=== PATIENT | male | born 1930 | race Caucasian/White ===

== ENCOUNTER 2017-06-28 05:14 | Emergency (ER) | payer MEDICARE, BC ==
[2017-06-28] MEDS ORDERED: Phenylephrine 0.5% Nasal Spray 15 ML Bot NASBOTH ONE (05:19)
[2017-06-28 05:20] VITALS: BP 172/66
--- NOTE | 2017-06-28 05:38 | EDM.PDOC ---
ED HPI GENERAL MEDICAL PROBLEM - General Chief Complaint: ENT Problem Stated Complaint: NOSE BLEED Time Seen by Provider: 06/28/17 05:26 Source of Information: Reports: Patient, Family History Limitations: Reports: No Limitations - History of Present Illness INITIAL COMMENTS - FREE TEXT/NARRATIVE: C/o waking with nosebleed on right side. Hx of similar in past. On Coumadin. InR checked last week at 1.8 - Related Data Allergies Allergy/AdvReac Type Severity Reaction Status Date / Time No Known Allergies Allergy Verified 06/28/17 05:17 Home Meds: Home Meds Aspirin [[place] Aspirin] 81 mg PO DAILY 04/24/14 [History] Doxazosin [Doxazosin Mesylate] 8 mg PO BEDTIME 04/24/14 [History] Levothyroxine [Synthroid] 75 mcg PO ACBRK 04/24/14 [History] Lisinopril [Lisinopril] 10 mg PO DAILY 04/24/14 [History] Metoprolol Succinate [Toprol XL] 25 mg PO DAILY 04/24/14 [History] Nitroglycerin [Nitrostat] 0.4 mg SL ASDIRECTED PRN 04/24/14 [History] Triamcinolone Acetonide [Triamcinolone Acetonide 0.1% Crm] 15 gm .XX ASDIRECTED 04/24/14 [History] Warfarin [Coumadin] 7.5 mg PO DAILY 04/24/14 [History] Furosemide [Furosemide] 40 mg PO DAILY 06/28/17 [History] Past Medical History HEENT History: Reports: Epistaxis, Impaired Vision Cardiovascular History: Reports: High Cholesterol, Hypertension Musculoskeletal History: Reports: Arthritis Endocrine/Metabolic History: Reports: Hypothyroidism Oncologic (Cancer) History: Reports: Prostate - Past Surgical History Cardiovascular Surgical History: Reports: Valve Replacement Social & Family History - Family History Family Medical History: Noncontributory - Tobacco Use Smoking Status *Q: Never Smoker Second Hand Smoke Exposure: No - Alcohol Use Days Per Week of Alcohol Use: 0 - Recreational Drug Use Recreational Drug Use: No ED ROS ENT - Review of Systems Review Of Systems: ROS reveals no pertinent complaints other than HPI. ED EXAM, ENT - Physical Exam Exam: See Below Exam Limited By: No Limitations General Appearance: Alert, Mild Distress Eye Exam: Bilateral Eye: EOMI Nose: Active Bleeding (right slight, small clot expressed. ). No: Dried Blood Head: Atraumatic, Normocephalic Neck: Normal Inspection Respiratory/Chest: No Respiratory Distress Extremities: Normal Inspection, Normal Range of Motion Neurological: Alert, Oriented, Normal Cognition Skin: Warm, Dry, Intact, Normal Color ED ENT PROCEDURES - Epistaxis Procedure Indication: Epistaxis Recent anticoagulants/antiplatlets: Yes Uncontrolled HTN: No Recent septal/nasal surgery: No Site of bleeding: Left Nare Clearing of clots: Patient Blew Nose Topical Meds: Phenylephrine Ice pack to area: No Anterior Packing: Inflatable Nasal Tampon Course - Vital Signs Last Recorded V/S: Last Vital Signs Temp 96.4 F 06/28/17 05:18 Pulse 88 06/28/17 05:18 Resp 20 06/28/17 05:18 BP 172/66 H 06/28/17 05:18 Pulse Ox 100 06/28/17 05:18 - Orders/Labs/Meds Labs: Laboratory Tests 06/28/17 06/28/17 06/28/17 Range/Units 05:28 05:28 05:28 WBC 5.0 (5.0-10.0) 10^3/uL RBC 3.63 L (4.6-6.2) 10^6/uL Hgb 11.0 L (14.0-18.0) g/dL Hct 33.8 L (40.0-54.0) % MCV 93.1 (80-100) fL MCH 30.3 (27.0-34.0) pg MCHC 32.5 L (33.0-35.0) g/dL Plt Count 141 L (150-450) 10^3/uL Neut % (Auto) 68.3 (42.2-75.2) % Lymph % (Auto) 19.0 L (20.5-50.1) % [place] % (Auto) 10.1 H (2-8) % Eos % (Auto) 2.0 (1.0-3.0) % Baso % (Auto) 0.6 (0.0-1.0) % PT 23.6 H (9.0-12.0) SEC INR 2.3 H (0.9-1.2) Sodium 138 (135-145) mmol/L Potassium 4.4 (3.6-5.0) mmol/L Chloride 102 (101-111) mmol/L Carbon Dioxide 25.0 (21.0-31.0) mmol/L Anion Gap 15.4 BUN 31 H (7-18) mg/dL Creatinine 1.3 (0.6-1.3) mg/dL Est Cr Clr Drug Dosing 39.55 mL/min Estimated GFR (MDRD) 53 BUN/Creatinine Ratio 23.84 Glucose 128 H (74-105) mg/dL Calcium 9.0 (8.4-10.2) mg/dl Total Bilirubin 0.7 (0.2-1.0) mg/dL AST 23 (10-42) IU/L ALT 17 (10-60) IU/L Alkaline Phosphatase 59 (42-121) IU/L Total Protein 7.3 (6.7-8.2) g/dl Albumin 4.3 (3.2-5.5) g/dl Globulin 3.0 Albumin/Globulin Ratio 1.43 Meds: Medications Discontinued Medications Generic Name Dose Route Start Last Admin Trade Name Freq PRN Reason Stop Dose Admin Phenylephrine HCl 1 ml 06/28/17 05:19 06/28/17 05:23 Juan Manuel-Synephrine 0.5% Regular Nasal [place] NASBOTH 06/28/17 05:20 1 ml ONETIME ONE Administration Departure - Departure Time of Disposition: 06:30 Disposition: Home, Self-Care 01 Condition: Good Clinical Impression: Epistaxis, Chronic anticoagulation - Discharge Information Forms: ED Department Discharge Additional Instructions: follow up with Dr. Rivera today as scheduled rest If recurrent bleeding, apply direct pressure to nose bridge for at least 5 minutes. if continued bleeding despite pressure follow up. Humidifier in bedroom at night
== END 2017-06-28 06:33 | disposition home or self-care (01) ==
LOC: DL.ED 05:14
DX: R04.0 Epistaxis (principal); M19.90 Unspecified osteoarthritis, unspecified site; I10 Essential (primary) hypertension; E78.00 Pure hypercholesterolemia, unspecified; E03.9 Hypothyroidism, unspecified; Z95.2 Presence of prosthetic heart valve; Z85.46 Personal history of malignant neoplasm of prostate; Z79.01 Long term (current) use of anticoagulants; Z79.82 Long term (current) use of aspirin; Z79.899 Other long term (current) drug therapy
CPT/HCPCS: 30903; 36415; 80053; 85025; 85610; 99283; A9270

== ENCOUNTER 2017-08-16 08:50 | Emergency (ER) | payer MEDICARE, BC ==
[2017-08-16 09:01] VITALS: BP 138/53
[2017-08-16] MEDS ORDERED: Phenylephrine 0.5% Nasal Spray 15 ML Bot NASBOTH ONE (09:49)
--- NOTE | 2017-08-16 10:08 | EDM.PDOC ---
ED HPI GENERAL MEDICAL PROBLEM - General Chief Complaint: ENT Problem Stated Complaint: [id number] NOSE BLEED Time Seen by Provider: 08/16/17 09:05 Source of Information: Reports: Patient History Limitations: Reports: No Limitations - History of Present Illness INITIAL COMMENTS - FREE TEXT/NARRATIVE: This 86 yo male patient reports to the ED with a nose bleed. The patient reports his right nare started bleeding at about 0200 this morning and has continued despite attempts at controlling the bleeding at home. The patient reports he has had previous symptoms in the past and has attempted to get an appointment with an ENT for further treatment. The patient is on blood thinner which seems to complicate his nosebleeds. Onset: Today Onset Date: 08/16/17 Onset Time: 02:00 Duration: Constant Location: Reports: Face (right nare) Quality: Reports: Dull Severity: Moderate Improves with: Reports: None Worsens with: Reports: None Associated Symptoms: Reports: Other (epistaxis) - Related Data Allergies Allergy/AdvReac Type Severity Reaction Status Date / Time No Known Allergies Allergy Verified 06/28/17 05:17 Home Meds: Home Meds Aspirin [[place] Aspirin] 81 mg PO DAILY 04/24/14 [History] Doxazosin [Doxazosin Mesylate] 8 mg PO BEDTIME 04/24/14 [History] Levothyroxine [Synthroid] 75 mcg PO ACBRK 04/24/14 [History] Lisinopril [Lisinopril] 10 mg PO DAILY 04/24/14 [History] Metoprolol Succinate [Toprol XL] 25 mg PO DAILY 04/24/14 [History] Nitroglycerin [Nitrostat] 0.4 mg SL ASDIRECTED PRN 04/24/14 [History] Triamcinolone Acetonide [Triamcinolone Acetonide 0.1% Crm] 15 gm .XX ASDIRECTED 04/24/14 [History] Warfarin [Coumadin] 7.5 mg PO DAILY 04/24/14 [History] Furosemide [Furosemide] 40 mg PO DAILY 06/28/17 [History] Past Medical History HEENT History: Reports: Epistaxis, Impaired Vision Cardiovascular History: Reports: Afib, High Cholesterol, Hypertension, Stents Genitourinary History: Reports: Prostate Disorder Musculoskeletal History: Reports: Arthritis, Osteoporosis Endocrine/Metabolic History: Reports: Hypothyroidism Oncologic (Cancer) History: Reports: Prostate - Past Surgical History Cardiovascular Surgical History: Reports: AAA Repair, Aneurysm, Valve Replacement GI Surgical History: Reports: Appendectomy Male Surgical History: Reports: Prostate Biopsy Social & Family History - Family History Family Medical History: Noncontributory - Tobacco Use Smoking Status *Q: Former Smoker Used Tobacco, but Quit: Yes Month Tobacco Last Used: ? Second Hand Smoke Exposure: No - Caffeine Use Caffeine Use: Reports: Coffee - Alcohol Use Days Per Week of Alcohol Use: 0 - Recreational Drug Use Recreational Drug Use: No ED ROS ENT - Review of Systems Review Of Systems: ROS reveals no pertinent complaints other than HPI. ED EXAM, ENT - Physical Exam Exam: See Below Exam Limited By: No Limitations General Appearance: Alert, WD/WN, Moderate Distress Eye Exam: Bilateral Eye: EOMI, Normal Inspection, PERRL Ears: Normal External Exam, Normal Canal, Hearing Grossly Normal, Normal TMs Nose: Active Bleeding (right nare) Mouth/Throat: Normal Inspection, Normal Gums, Normal Lips, Normal Oropharynx, Normal Teeth Head: Atraumatic, Normocephalic Neck: Normal Inspection, Supple, Non-Tender, Full Range of Motion Respiratory/Chest: No Respiratory Distress, Lungs Clear, Normal Breath Sounds, No Accessory Muscle Use, Chest Non-Tender Cardiovascular: Normal Peripheral Pulses, Irregularly Irregular GI/Abdominal: Normal Bowel Sounds, Soft, Non-Tender, No Organomegaly, No Distention, No Abnormal Bruit, No Mass (Male) Exam: Deferred Rectal (Males) Exam: Deferred Back: Normal Inspection, Full Range of Motion Extremities: Normal Inspection, Normal Range of Motion, Non-Tender, No Pedal Edema, Normal Capillary Refill Neurological: Alert, Oriented, CN II-XII Intact, Normal Cognition, Normal Gait, Normal Reflexes, No Motor/Sensory Deficits Psychiatric: Normal Affect, Normal Mood Skin: Warm, Dry, Intact, Normal Color, No Rash Lymphatic: No Adenopathy ED ENT PROCEDURES - Epistaxis Procedure Indication: Epistaxis Recent anticoagulants/antiplatlets: Yes Uncontrolled HTN: No Recent septal/nasal surgery: No Site of bleeding: Right Nare Clearing of clots: Patient Blew Nose Topical Meds: Phenylephrine Ice pack to area: No Anterior Packing: Nasal Tampon Posterior packing: Long Nasal Tampon Complications: No Course - Vital Signs Last Recorded V/S: Last Vital Signs Temp 35.9 C 08/16/17 08:57 Pulse 60 08/16/17 08:57 Resp 16 08/16/17 08:57 BP 138/53 L 08/16/17 08:57 Pulse Ox 100 08/16/17 08:57 - Orders/Labs/Meds Labs: Laboratory Tests 08/16/17 08/16/17 08/16/17 Range/Units 09:08 09:08 09:08 WBC 5.2 (5.0-10.0) 10^3/uL RBC 3.35 L (4.6-6.2) 10^6/uL Hgb 10.1 L (14.0-18.0) g/dL Hct 31.6 L (40.0-54.0) % MCV 94.3 (80-100) fL MCH 30.1 (27.0-34.0) pg MCHC 32.0 L (33.0-35.0) g/dL Plt Count 156 (150-450) 10^3/uL Neut % (Auto) 75.4 H (42.2-75.2) % Lymph % (Auto) 14.5 L (20.5-50.1) % [place] % (Auto) 8.1 H (2-8) % Eos % (Auto) 1.4 (1.0-3.0) % Baso % (Auto) 0.6 (0.0-1.0) % PT 29.6 H (9.0-12.0) SEC INR 2.9 H (0.9-1.2) Sodium 135 (135-145) mmol/L Potassium 4.3 (3.6-5.0) mmol/L Chloride 100 L (101-111) mmol/L Carbon Dioxide 25.0 (21.0-31.0) mmol/L Anion Gap 14.3 BUN 27 H (7-18) mg/dL Creatinine 1.2 (0.6-1.3) mg/dL Est Cr Clr Drug Dosing 42.84 mL/min Estimated GFR (MDRD) 58 BUN/Creatinine Ratio 22.50 Glucose 144 H (74-105) mg/dL Calcium 8.5 (8.4-10.2) mg/dl Total Bilirubin 0.9 (0.2-1.0) mg/dL AST 21 (10-42) IU/L ALT 13 (10-60) IU/L Alkaline Phosphatase 66 (42-121) IU/L Total Protein 6.9 (6.7-8.2) g/dl Albumin 4.0 (3.2-5.5) g/dl Globulin 2.9 Albumin/Globulin Ratio 1.38 Meds: Medications Discontinued Medications Generic Name Dose Route Start Last Admin Trade Name Freq PRN Reason Stop Dose Admin Phenylephrine HCl 1 ml 08/16/17 09:49 08/16/17 09:53 Juan Manuel-Synephrine 0.5% Regular Nasal [place] NASBOTH 08/16/17 09:50 1 ml ONETIME ONE Administration Departure - Departure Time of Disposition: 10:32 Disposition: Home, Self-Care 01 Condition: Fair Clinical Impression: Epistaxis, recurrent - Discharge Information Instructions: Nosebleed, [id number] Forms: ED Department Discharge Care Plan Goals: The patient and his were advised of the examination and lab results during the visit. The patient's right nare was packed during the visit to control bleeding. The patient was encouraged to follow-up with his primary care facility or with an ENT in the next 3-4 days for packing removal. If the patient has any additional symptoms or concerns, the patient should visit his primary care facility or return to the emergency department.
== END 2017-08-16 10:37 | disposition home or self-care (01) ==
LOC: DL.ED 08:50
DX: R04.0 Epistaxis (principal); Z79.82 Long term (current) use of aspirin; Z79.01 Long term (current) use of anticoagulants; Z79.899 Other long term (current) drug therapy; Z87.891 Personal history of nicotine dependence
CPT/HCPCS: 30903; 36415; 80053; 85025; 85610; 99283; A9270; 30901; 99282

== ENCOUNTER 2021-01-16 10:28 | Emergency (ER) | payer MEDICARE, BC ==
[2021-01-16 10:43] VITALS: BP 159/64; PULSE 53
--- NOTE | 2021-01-16 10:54 | EDM.PDOC ---
<MarcioHalley - Last Filed: 01/16/21 12:20> ED HPI GENERAL MEDICAL PROBLEM - General Chief Complaint: General Stated Complaint: SENT FROM CLINIC HEART PROBLEM Time Seen by Provider: 01/16/21 11:10 Source of Information: Reports: Patient, Family History Limitations: Reports: No Limitations - History of Present Illness INITIAL COMMENTS - FREE TEXT/NARRATIVE: Patient is an 89 y.o. male, history of CHF and atrial fibrillation, who presents to the ED with c/o worsening shortness of breath and bilateral lower extremity edema. The patient reports he was more short of breath approximately 2 weeks ago when he was walking upstairs from his basement. He reports his symptoms have progressed over the course of 2 weeks to the point he won't attempt to go down his stairs. He also has developed a mild cough with no production. Home health comes to the patient's home every two weeks and they noticed his legs were more swollen on 01/12. He presented to [facility] clinic yesterday (01/15/2021) and they documented a 7 pound weight gain since 12/18/2020. The patient states his primary care provider decreased one of his diuretics; however, he is unable to remember the name of it. He recently began splitting his metalazone pill in half and has been taking 1/2 on Tuesday and the other half on with no relief. Patient denies headache, dizziness, changes in vision, chest pain, paroxysmal nocturnal orthopnea, abdominal pain, constipation, or diarrhea. Onset: Gradual Duration: Getting Worse Location: Reports: Chest Improves with: Reports: None Worsens with: Reports: None Associated Symptoms: Reports: Cough, Shortness of Breath - Related Data Allergies Allergy/AdvReac Type Severity Reaction Status Date / Time insect venom Allergy Hives Verified 01/16/21 10:53 Home Meds: Home Meds Aspirin [[place] Aspirin] 81 mg PO DAILY 04/24/14 [History] Levothyroxine [Synthroid] 75 mcg PO ACBRK 04/24/14 [History] Metoprolol Succinate [Toprol XL] 12.5 mg PO DAILY 04/24/14 [History] Nitroglycerin [Nitrostat] 0.4 mg SL ASDIRECTED PRN 04/24/14 [History] Warfarin [Coumadin] 7.5 mg PO ASDIRECTED 04/24/14 [History] Furosemide 40 mg PO DAILY 06/28/17 [History] Allopurinol [Zyloprim] 100 mg PO DAILY 01/16/21 [History] Calcium Carb/Vit D3/Minerals [Hm Calcium 800-D3-Ncopcmgk Tab] 2 oz PO BID 01/16/21 [History] Cyanocobalamin (Vitamin B-12) [Cyanocobalamin Injection] 1,000 mcg IM ASDIRECTED 01/16/21 [History] Denosumab [Prolia] 60 mg SUBCUT ASDIRECTED 01/16/21 [History] Glucosamine/Msm/Chondroitin A [Glucosamine Chondroit MSM Tab] 1 tab PO BID 01/16/21 [History] Rosuvastatin [Crestor] 5 mg PO ASDIRECTED 01/16/21 [History] Tamsulosin [Flomax] 0.4 mg PO DAILY 01/16/21 [History] Warfarin [Coumadin] 5 mg PO ASDIRECTED 01/16/21 [History] amLODIPine Besylate [Amlodipine Besylate] 10 mg PO DAILY 01/16/21 [History] metOLazone [Metolazone] 2.5 mg PO ASDIRECTED 01/16/21 [History] ED ROS GENERAL - Review of Systems Review Of Systems: Comprehensive ROS is negative, except as noted in HPI. ED EXAM, GENERAL - Physical Exam Exam: See Below Exam Limited By: No Limitations General Appearance: Alert, WD/WN, No Apparent Distress Eye Exam: Bilateral Eye: EOMI, Normal Inspection Throat/Mouth: Normal Inspection, Normal Lips, Normal Teeth, Normal Gums, Normal Oropharynx, Normal Voice, No Airway Compromise Head: Atraumatic, Normocephalic Neck: Normal Inspection, Supple, Non-Tender, Full Range of Motion Respiratory/Chest: No Respiratory Distress, Lungs Clear, Normal Breath Sounds, No Accessory Muscle Use, Chest Non-Tender Cardiovascular: Normal Peripheral Pulses, No Gallop, No JVD, No Murmur, No Rub, Irregularly Irregular (Patient chronically in Atrial Fibrilation) GI/Abdominal: Normal Bowel Sounds, Soft, Non-Tender, No Organomegaly, No Distention, No Abnormal Bruit, No Mass (Male) Exam: Deferred Rectal (Males) Exam: Deferred Back Exam: Normal Inspection, Full Range of Motion, NT Extremities: Normal Inspection, Normal Range of Motion, Non-Tender, Normal Capillary Refill, Pedal Edema (Patient has 1+ edema in bilateral lower legs ) Neurological: Alert, Oriented, CN II-XII Intact, Normal Cognition, Normal Gait, Normal Reflexes, No Motor/Sensory Deficits Psychiatric: Normal Affect, Normal Mood Skin Exam: Warm, Dry, Intact, Normal Color, No Rash Lymphatic: No Adenopathy Course - Re-Assessments/Exams Free Text/Narrative Re-Assessment/Exam: Discussed the patient's physical exam, lab, EKG and X-ray results with the patient and his son. The patient's EKG was remarkable for Atrial fibrillation, which is normal for the patient. RBC, Hgb, and Hct, were at patient's baseline. BUN and Creatinine were elevated at 50 and 2.00 respectively. Patient's BUN was 45 and Creatinine was 1.7 in the clinic on 01/08/2021. Troponin was negative today. BNP was 386. We discussed treatment options with the patient and son. We offered to speak with the hospitalist to discuss [facility] We also offered to give the patient a dose of IV lasix in the ED, send him home, and have him follow up with PCP early next week. The patient and his son both agreed it would be best for the patient and his home life to receive a dose in the ED and follow up next week. 01/16/21 12:04 Departure - Departure Time of Disposition: 12:20 Disposition: Home, Self-Care 01 Condition: Fair Clinical Impression: CHF, Congestive heart failure, Afib, Atrial fibrillation - Discharge Information *PRESCRIPTION DRUG MONITORING PROGRAM REVIEWED*: Not Applicable *COPY OF PRESCRIPTION DRUG MONITORING REPORT IN PATIENT SILVIA: Not Applicable Instructions: Heart Failure Action Plan, Heart Failure Exacerbation Forms: ED Department Discharge Care Plan Goals: -Discussed the history, physical exam, lab, EKG, and Chest X-ray results with the patient and his son. -The patient received 40mg IV Lasix in the ED. -Patient should continue to monitor weight at home. Continue taking daily medications as prescribed. -Follow up in the ED if symptoms worsen or new symptoms develop. -Follow up in the clinic early next week with primary care provider to monitor symptoms. Patient and his son agreed to the above plan of care. All questions and concerns were addressed. <Colin Henning - Last Filed: 01/16/21 12:29> Past Medical History HEENT History: Reports: Epistaxis, Impaired Vision Cardiovascular History: Reports: Afib, High Cholesterol, Hypertension, Stents Genitourinary History: Reports: Prostate Disorder Musculoskeletal History: Reports: Arthritis, Osteoporosis Endocrine/Metabolic History: Reports: Hypothyroidism Oncologic (Cancer) History: Reports: Prostate - Past Surgical History Cardiovascular Surgical History: Reports: AAA Repair, Aneurysm, Valve Replacement GI Surgical History: Reports: Appendectomy Male Surgical History: Reports: Prostate Biopsy Social & Family History - Family History Family Medical History: No Pertinent Family History - Caffeine Use Caffeine Use: Reports: Coffee #1 Interpretation EKG Date: 01/16/21 Time: 10:41 Rhythm: A-Fib [place]: Normal P-Wave: Absent QRS: Normal ST-T: Normal QT: Normal Comparison: No Change Course - Vital Signs Last Recorded V/S: Last Vital Signs Temp 36.1 C 01/16/21 10:34 Pulse 53 L 01/16/21 10:34 Resp 16 01/16/21 10:34 BP 159/64 H 01/16/21 10:34 Pulse Ox 100 01/16/21 10:34 - Orders/Labs/Meds Orders: Active Orders 24 hr Category Date Time Status EKG Documentation Completion [RC] STAT Care 01/16/21 10:37 Active Labs: Laboratory Tests 01/16/21 01/16/21 01/16/21 Range/Units 10:52 10:52 11:10 WBC 7.0 (5.0-10.0) 10^3/uL RBC 3.26 L (4.6-6.2) 10^6/uL Hgb 10.5 L (14.0-18.0) g/dL Hct 31.0 L (40.0-54.0) % MCV 95.1 (80-100) fL MCH 32.2 (27.0-34.0) pg MCHC 33.9 (33.0-35.0) g/dL Plt Count 175 (150-450) 10^3/uL Neut % (Auto) 73.0 (42.2-75.2) % Lymph % (Auto) 12.1 L (20.5-50.1) % [place] % (Auto) 12.4 H (2-8) % Eos % (Auto) 1.6 (1.0-3.0) % Baso % (Auto) 0.9 (0.0-1.0) % Sodium 135 L (136-145) mmol/L Potassium 3.1 L (3.5-5.1) mmol/L Chloride 95 L (98-107) mmol/L Carbon Dioxide 31 (21-32) mmol/L Anion Gap 12.1 (7-13) mEq/L BUN 54 H (7-18) mg/dL Creatinine 2.00 H (0.70-1.30) mg/dL Est Cr Clr Drug Dosing 23.87 mL/min Estimated GFR (MDRD) 32 BUN/Creatinine Ratio 27.0 (No establ ref range) Glucose 152 H (74-99) mg/dL Calcium 8.5 (8.5-10.1) mg/dL Total Bilirubin 0.7 (0.2-1.0) mg/dL AST 19 (15-37) U/L ALT 22 (16-63) U/L Alkaline Phosphatase 84 (46-116) U/L Troponin I 0.022 (0.000-0.056) ng/mL B-Natriuretic Peptide 386 H (0-100) pg/ml Total Protein 7.4 (6.4-8.2) g/dL Albumin 3.7 (3.4-5.0) g/dL Globulin 3.7 Albumin/Globulin Ratio 1.0 Urine Color Yellow (YELLOW) Urine Appearance Clear (CLEAR) Urine pH 7.0 (5.0-9.0) Ur Specific [place] 1.020 (1.005-1.030) Urine Protein Negative (NEGATIVE) Urine Glucose (UA) Negative (NEGATIVE) Urine Ketones Negative (NEGATIVE) Urine Occult Blood Trace-intact H (NEGATIVE) Urine Nitrite Negative (NEGATIVE) Urine Bilirubin Negative (NEGATIVE) Urine Urobilinogen 0.2 (0.2-1.0) mg/dL Ur Leukocyte Esterase Negative (NEGATIVE) Urine RBC 5-10 H /HPF Urine WBC 0-5 (0-5/HPF) /HPF Ur Epithelial Cells Rare (NOT SEEN) /HPF Urine Bacteria Rare (0-FEW/HPF) /HPF Urine Mucus Few H (NOT SEEN) /LPF Meds: Medications Discontinued Medications Generic Name Dose Route Start Last Admin Trade Name Freq PRN Reason Stop Dose Admin Furosemide 40 mg 01/16/21 11:59 01/16/21 12:05 Furosemide 40 Mg/4 Ml Vial IVPUSH 01/16/21 12:00 40 mg NOW ONE Administration - Re-Assessments/Exams Free Text/Narrative Re-Assessment/Exam: 01/16/21 12:29 I have examined the patient. I have discussed findings and treatment plan with the PA student. I agree with the assessment and plan in the following students note. Sepsis Event Note (ED) - Evaluation Sepsis Screening Result: No Definite Risk - Focused Exam Vital Signs: Vital Signs Temp Pulse Resp BP Pulse Ox 01/16/21 10:34 36.1 C 53 L 16 159/64 H 100 - My Orders Last 24 Hours: My Active Orders 01/16/21 10:37 EKG Documentation Completion [RC] STAT - Assessment/Plan Last 24 Hours: My Active Orders 01/16/21 10:37 EKG Documentation Completion [RC] STAT
[2021-01-16 11:18] LABS: ANION GAP 12.1 mEq/L (7-13)
--- NOTE | 2021-01-16 11:41 | CR ---
PROCEDURE INFORMATION: Exam: XR Chest Exam date and time: 01/16/2021 11:11 AM Age: 89 years old Clinical indication: Shortness of breath and other: History of chf; Prior surgery; Additional info: Short of breath, HX of chf TECHNIQUE: Imaging protocol: XR of the chest Views: 1 view. COMPARISON: No relevant prior studies available. FINDINGS: Lungs: There is minor streaky bibasilar atelectasis. The lungs are otherwise clear. Pleural spaces: Unremarkable. No pleural effusion. No pneumothorax. Heart/Mediastinum: The cardiac silhouette appears large. Bones/joints: Unremarkable. Other findings: Median sternotomy wires are present. IMPRESSION: Cardiomegaly. No acute pulmonary disease.
[2021-01-16] MEDS ORDERED: Furosemide 40 MG/4 ML VIAL IVPUSH ONE (11:59)
== END 2021-01-16 12:50 | disposition home or self-care (01) ==
LOC: DL.ED 10:28
DX: I48.91 Unspecified atrial fibrillation (principal); I11.0 Hypertensive heart disease with heart failure; I50.9 Heart failure, unspecified; E78.00 Pure hypercholesterolemia, unspecified; M19.90 Unspecified osteoarthritis, unspecified site; E03.9 Hypothyroidism, unspecified; Z91.038 Other insect allergy status; Z79.82 Long term (current) use of aspirin; Z79.899 Other long term (current) drug therapy
CPT/HCPCS: 36415; 71045; 80053; 81001; 83880; 84484; 85025; 93005; 96374; 99285; J1940; 93010

== ENCOUNTER 2021-01-20 11:20 | Observation (INO) | payer MEDICARE, BC ==
[2021-01-20] MEDS ORDERED: Sodium Chloride 0.9% 10 ML Syringe FLUSH PRN (12:02)
[2021-01-20] MEDS ORDERED: Acetaminophen 325 MG Tab PO PRN (12:02)
[2021-01-20] MEDS ORDERED: Potassium Chloride 10 MEQ Tab.ER PO ONE (13:13)
[2021-01-20] MEDS ORDERED: Potassium Chloride 20 MEQ in Premix Bag 1 BAG IV ONE (13:13)
--- NOTE | 2021-01-20 14:42 | CR ---
EXAMINATION: Chest 2V SEX: Male AGE: 89 years CLINICAL HISTORY: 82-year-old male with clinical heart failure (CHF). Comparison CXR's 16 January 2021 and 31 July 2012 INTERPRETATION: Sternotomy wires. 1. Abnormally enlarged cardiac silhouette decidedly increased since July 2012 but comparable to 16 January film. 2. Chronic mild pulmonary vascular congestion and blunting of the costophrenic sulci. 3. No new evidence of alveolar edema, interstitial Patricia B lines, or dependent pleural fluid accumulation. 4. No new lung mass or hilar lymphadenopathy. 5. No focal lobar infiltrate or atelectasis. No peripheral "groundglass" interstitial lung densities. 6. No pneumothorax or pneumomediastinum. CONCLUSION: Chronic heart disease. Stable. No new evidence of congestive heart failure.
--- NOTE | 2021-01-20 14:48 | PCM.HP ---
H&P History of Present Illness - General Date of Service: 01/20/21 Admit Problem/Dx: Admission Diagnosis/Problem Admission Diagnosis/Problem Hypokalemia Source of Information: Patient, Provider History Limitations: Reports: No Limitations - History of Present Illness Onset of Symptoms: Reports: Gradual Duration of Symptoms: Reports: Day(s): (few\) Severity: Moderate Other HPI/Comments: pt is 89 y/o m with h/o A fib, CAD, AAA repair, AVR 20 years ago, CHF. Pt reported SOB for 1-2 weeks. He was treated on ER few days ago for CHF exacerbation. with IV Lasix. He symptoms improved . Today he was seen by his PCP and was found with K 2.9 and he was admitted for replacment. Pt reportes that he has gain 10 Lbs over the last 2 weeks ( his dry wt is ~ 185 Lbs). He reports that he has no orthopnea but hr get SOB on mild exertion. no cough or CP. 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 He liver with his and son. - Related Data Allergies/Adverse Reactions: Allergies Allergy/AdvReac Type Severity Reaction Status Date / Time insect venom Allergy Hives Verified 01/16/21 10:53 Home Medications: Home Meds Levothyroxine [Synthroid] 75 mcg PO ACBRK 04/24/14 [History] Metoprolol Succinate [Toprol XL] 12.5 mg PO BEDTIME 04/24/14 [History] Nitroglycerin [Nitrostat] 0.4 mg SL ASDIRECTED PRN 04/24/14 [History] Warfarin [Coumadin] 7.5 mg PO .LUKE@2100 04/24/14 [History] Furosemide 40 mg PO DAILY 06/28/17 [History] Allopurinol [Zyloprim] 100 mg PO DAILY 01/16/21 [History] Calcium Carb/Vit D3/Minerals [Hm Calcium 787-T6-Tdohcdpc Tab] 2 oz PO BIDMEALS 01/16/21 [History] Cyanocobalamin (Vitamin B-12) [Cyanocobalamin Injection] 1,000 mcg IM ASDIRECTED 01/16/21 [History] Denosumab [Prolia] 60 mg SUBCUT ASDIRECTED 01/16/21 [History] Glucosamine/Msm/Chondroitin A [Glucosamine Chondroit MSM Tab] 1 tab PO BIDMEALS 01/16/21 [History] Rosuvastatin [Crestor] 5 mg PO .MONWEDFRID@2100 01/16/21 [History] Tamsulosin [Flomax] 0.4 mg PO DAILY 01/16/21 [History] Warfarin [Coumadin] 5 mg PO .MONWEDFRI 01/16/21 [History] amLODIPine Besylate [Amlodipine Besylate] 10 mg PO DAILY 01/16/21 [History] metOLazone [Metolazone] 2.5 mg PO .MONTH 01/16/21 [History] Aspirin [Aspirin EC] 81 mg PO BEDTIME 01/20/21 [History] Vit A/Vit C/Vit E/Zinc/Copper [Eye Multivitamin Tablet] 1 tab PO BIDMEALS 01/20/21 [History] Past Medical History HEENT History: Reports: Epistaxis, Hard of Hearing, Impaired Vision Cardiovascular History: Reports: Afib, Heart Failure, High Cholesterol, Hypertension, Stents Gastrointestinal History: Reports: None Genitourinary History: Reports: Prostate Disorder Musculoskeletal History: Reports: Arthritis, Osteoporosis Endocrine/Metabolic History: Reports: Hypothyroidism, Obesity/BMI 30+ Hematologic History: Reports: B12 Deficiency, Blood Transfusion(s) Oncologic (Cancer) History: Reports: Prostate - Infectious Disease History Infectious Disease History: Reports: None - Past Surgical History HEENT Surgical History: Reports: Tonsillectomy Cardiovascular Surgical History: Reports: AAA Repair, Aneurysm, Valve Replacement Other Cardiovascular Surgeries/Procedures: Artifical valve GI Surgical History: Reports: Appendectomy Male Surgical History: Reports: Prostate Biopsy Endocrine Surgical History: Reports: None Musculoskeletal Surgical History: Reports: None Oncologic Surgical History: Reports: None Social & Family History - Family History Family Medical History: No Pertinent Family History - Tobacco Use Tobacco Use Status *Q: Former Tobacco User Used Tobacco, but Quit: Yes Month/Year Tobacco Last Used: 1984 - Caffeine Use Caffeine Use: Reports: Coffee - Recreational Drug Use Recreational Drug Use: No H&P Review of Systems - Review of Systems: Review Of Systems: See Below General: Reports: Malaise, Fatigue. Denies: Fever, Chills HEENT: Reports: Visual Changes Pulmonary: Reports: Shortness of Breath. Denies: Cough Cardiovascular: Denies: Chest Pain, Palpitations Gastrointestinal: Denies: Abdominal Pain Genitourinary: Denies: Dysuria Skin: Denies: Jaundice Psychiatric: Denies: Confusion Neurological: Denies: Confusion Exam - Exam Exam: See Below - Vital Signs Vital Signs: Last Vital Signs Temp 97.1 F 01/20/21 12:07 Pulse 54 L 01/20/21 12:07 Resp 20 01/20/21 12:07 BP 142/82 H 01/20/21 12:07 Pulse Ox 98 01/20/21 12:07 - Exam Quality Assessment: No: Supplemental Oxygen General: Alert, Oriented HEENT: EOMI Lungs: Clear to Auscultation Cardiovascular: Regular Rate, Regular Rhythm, Normal S1, Normal S2 (Male) Exam: Deferred Back Exam: Full Range of Motion Extremities: Pedal Edema Skin: Intact Neurological: Cranial Nerves Intact Neuro Extensive - Mental Status: Alert, Oriented x3, Normal Mood/Affect Neuro Extensive - Motor, Sensory, Reflexes: No: Facial Palsy (R) Psychiatric: Alert, Normal Affect, Normal Mood - Patient Data Lab Results Last 24 hrs: labs from [facility] from today reviewed INR 2.9, trop neg, K: 2.6, Cr 2.2, Hgb 10,4, COVID is neg. - Problem List (1) Afib, Atrial fibrillation SNOMED Code(s): 33610464 ICD Code: I48.91 - UNSPECIFIED ATRIAL FIBRILLATION Status: Chronic Current Visit: No (2) CHF, Congestive heart failure SNOMED Code(s): 25594732 ICD Code: I50.9 - HEART FAILURE, UNSPECIFIED Status: Acute Current Visit: No (3) Chronic anticoagulation SNOMED Code(s): 096149294 ICD Code: Z79.01 - FPC (CURRENT) USE OF ANTICOAGULANTS Status: Chronic Current Visit: No Problem List Initiated/Reviewed/Updated: Yes Orders Last 24hrs: Active Orders 24 hr Category Date Time Status Admission Status [Patient Status] [ADT] Routine ADT 01/20/21 14:09 Active Blood Glucose Check, Bedside [RC] WITHMEALSANDBED Care 01/20/21 12:02 Active Cardiac Monitoring [RC] CONTINUOUS Care 01/20/21 12:05 Active Height and Weight [RC] DAILY Care 01/20/21 12:02 Active Intake and Output [RC] QSHIFT Care 01/20/21 12:04 Active Oxygen Therapy [RC] PRN Care 01/20/21 12:02 Active Up With Assistance [RC] ASDIRECTED Care 01/20/21 12:02 Active VTE/DVT Education [RC] PER UNIT ROUTINE Care 01/20/21 12:02 Active Vital Signs [RC] Q4H Care 01/20/21 12:02 Active 2 Gram Sodium Diet [DIET] Diet 01/20/21 Dinner Active Chest 2V [CR] Routine Exams 01/20/21 12:02 Taken CBC WITH AUTO DIFF [HEME] AM Lab 01/21/21 05:11 Ordered CBC WITH AUTO DIFF [HEME] AM Lab 01/22/21 05:11 Ordered INR,PT,PROTHROMBIN TIME [COAG] AM Lab 01/21/21 05:11 Ordered INR,PT,PROTHROMBIN TIME [COAG] AM Lab 01/22/21 05:11 Ordered Acetaminophen [TylenoL] Med 01/20/21 12:02 Active 650 mg PO Q4H PRN Potassium Chloride [KCL in Water 20 MEQ/100 ML] 20 meq Med 01/20/21 13:13 Active Premix Bag 1 bag IV ONETIME Sodium Chloride 0.9% [Saline Flush] Med 01/20/21 12:02 Active 10 ml FLUSH ASDIRECTED PRN Saline Lock Insert [OM.PC] Routine Oth 01/20/21 12:02 Ordered Code Status [Resuscitation Status] Routine Resus Stat 01/20/21 13:07 Ordered Medication Orders Acetaminophen (Acetaminophen 325 Mg Tab) 650 mg PO Q4H PRN PRN Reason: Pain (Mild 1-3)/fever Potassium Chloride 20 meq/ (Premix) 100 mls @ 50 mls/hr IV ONETIME ONE Stop: 01/20/21 15:12 Last Admin: 01/20/21 14:41 Dose: 50 mls/hr Documented by: [id number] Sodium Chloride (Sodium Chloride 0.9% 10 Ml Syringe) 10 ml FLUSH ASDIRECTED PRN PRN Reason: Keep Vein Open Assessment/Plan Comment:: Hypokalemia: severe: for oral and IV replacement CHF exacerbation: switch to IV diuretics AVR: monitor INR CAD: cont . home medications DNR/ DNI: as per pt request
[2021-01-20] MEDS ORDERED: Nitroglycerin 0.4 MG Tab.SL SL PRN (15:04)
[2021-01-20] MEDS ORDERED: Denosumab 60 MG/1 ML Syringe SUBCUT SCH (15:15)
[2021-01-20] MEDS ORDERED: Non-Formulary Medication 1 Each (Warfarin 7.5 MG Tablet) PO SCH (15:15)
[2021-01-20] MEDS ORDERED: Cyanocobalamin (Vitamin B12) 1,000 MCG/ML SDV IM SCH (15:15)
[2021-01-20] MEDS ORDERED: Warfarin 5 MG Tab PO SCH (15:15)
[2021-01-20] MEDS ORDERED: Furosemide 40 MG/4 ML VIAL IVPUSH ONE (16:00)
[2021-01-20] MEDS: Lutein/Minerals/Vit A,C & E Tab PO SCH (18:21)
[2021-01-20] MEDS: Allopurinol 100 MG Tab PO SCH (18:27)
[2021-01-20] MEDS: Aspirin 81 MG Tab.EC PO SCH (20:00)
[2021-01-20] MEDS: Metoprolol Succinate 25 MG Tab.ER PO SCH (20:00)
[2021-01-20] MEDS ORDERED: Potassium Chloride 10 MEQ Tab.ER PO SCH (21:00)
[2021-01-21] MEDS: Levothyroxine 75 MCG Tab PO SCH (05:47)
[2021-01-21] MEDS ORDERED: Allopurinol 100 MG Tab PO SCH (09:00)
[2021-01-21] MEDS: amLODIPine 5 MG Tab PO SCH (09:25)
[2021-01-21] MEDS: Lutein/Minerals/Vit A,C & E Tab PO SCH ×2 (09:25→17:43)
[2021-01-21] MEDS: Tamsulosin 0.4 MG Cap.ER PO SCH (09:25)
[2021-01-21] MEDS: Furosemide 20 MG/2 ML VIAL IVPUSH SCH ×2 (09:26→13:29)
[2021-01-21] MEDS: Calcium Carbonate/Vitamin D3 1250 MG-200 Unit Tab PO SCH ×2 (10:33→17:43)
[2021-01-21] MEDS ORDERED: Potassium Chloride 10 MEQ Tab.ER PO ONE (10:57)
--- NOTE | 2021-01-21 11:06 | PCM.PN ---
- General Info Date of Service: 01/21/21 Admission Dx/Problem (Free Text): Feeling better Functional Status: Reports: Tolerating Diet - Review of Systems General: Denies: Fever Pulmonary: Denies: Shortness of Breath, Wheezing Cardiovascular: Denies: Chest Pain Gastrointestinal: Denies: Abdominal Pain, Vomiting Neurological: Denies: Confusion Psychiatric: Denies: Confusion - Patient Data Vitals - Most Recent: Last Vital Signs Temp 98.8 F 01/21/21 07:56 Pulse 57 L 01/21/21 07:56 Resp 20 01/21/21 07:56 BP 136/65 01/21/21 09:25 Pulse Ox 93 L 01/21/21 07:56 Weight - Most Recent: 197 lb 6.4 oz I&O - Last 24 Hours: Intake & Output 01/20/21 01/21/21 01/21/21 22:59 06:59 14:59 Intake Total 300 Output Total 300 750 200 Balance 0 -750 -200 Lab Results Last 24 Hours: Laboratory Results - last 24 hr 01/20/21 01/21/21 01/21/21 Range/Units 15:30 06:17 06:17 WBC 5.7 (5.0-10.0) 10^3/uL RBC 3.35 L (4.6-6.2) 10^6/uL Hgb 10.4 L (14.0-18.0) g/dL Hct 31.9 L (40.0-54.0) % MCV 95.2 (80-100) fL MCH 31.0 (27.0-34.0) pg MCHC 32.6 L (33.0-35.0) g/dL Plt Count 158 (150-450) 10^3/uL Neut % (Auto) 71.9 (42.2-75.2) % Lymph % (Auto) 13.7 L (20.5-50.1) % Clinch % (Auto) 11.9 H (2-8) % Eos % (Auto) 1.6 (1.0-3.0) % Baso % (Auto) 0.9 (0.0-1.0) % PT 32.3 H D 28.6 H (9.0-12.0) SEC INR 3.3 H 2.9 H (0.9-1.2) Sodium (136-145) mmol/L Potassium (3.5-5.1) mmol/L Chloride (98-107) mmol/L Carbon Dioxide (21-32) mmol/L Anion Gap (7-13) mEq/L BUN (7-18) mg/dL Creatinine (0.70-1.30) mg/dL Est Cr Clr Drug Dosing mL/min Estimated GFR (MDRD) Glucose (74-99) mg/dL Calcium (8.5-10.1) mg/dL 01/21/21 Range/Units 06:17 WBC (5.0-10.0) 10^3/uL RBC (4.6-6.2) 10^6/uL Hgb (14.0-18.0) g/dL Hct (40.0-54.0) % MCV (80-100) fL MCH (27.0-34.0) pg MCHC (33.0-35.0) g/dL Plt Count (150-450) 10^3/uL Neut % (Auto) (42.2-75.2) % Lymph % (Auto) (20.5-50.1) % Clinch % (Auto) (2-8) % Eos % (Auto) (1.0-3.0) % Baso % (Auto) (0.0-1.0) % PT (9.0-12.0) SEC INR (0.9-1.2) Sodium 135 L (136-145) mmol/L Potassium 3.0 L (3.5-5.1) mmol/L Chloride 95 L (98-107) mmol/L Carbon Dioxide 31 (21-32) mmol/L Anion Gap 12.0 (7-13) mEq/L BUN 50 H (7-18) mg/dL Creatinine 1.95 H (0.70-1.30) mg/dL Est Cr Clr Drug Dosing 25.33 mL/min Estimated GFR (MDRD) 33 Glucose 122 H (74-99) mg/dL Calcium 8.1 L (8.5-10.1) mg/dL Med Orders - Current: Current Medications Acetaminophen (Acetaminophen 325 Mg Tab) 650 mg PO Q4H PRN PRN Reason: Pain (Mild 1-3)/fever Allopurinol (Allopurinol 100 Mg Tab) 100 mg PO DAILY@1800 [facility] Last Admin: 01/20/21 18:27 Dose: 100 mg Documented by: Amlodipine Besylate (Amlodipine 5 Mg Tab) 10 mg PO DAILY [facility] Last Admin: 01/21/21 09:25 Dose: 10 mg Documented by: Aspirin (Aspirin 81 Mg Tab.Ec) 81 mg PO BEDTIME [facility] Last Admin: 01/20/21 20:00 Dose: 81 mg Documented by: Calcium Carbonate (Calcium Carbonate/Vitamin D3 1250 Mg-200 Unit Tab) 1 tab PO BIDMEALS [facility] Last Admin: 01/21/21 10:33 Dose: 1 tab Documented by: Furosemide (Furosemide 20 Mg/2 Ml Vial) 20 mg IVPUSH BIDDIURETIC [facility] Last Admin: 01/21/21 09:26 Dose: 20 mg Documented by: Levothyroxine Sodium (Levothyroxine 75 Mcg Tab) 75 mcg PO ACBRK [facility] Last Admin: 01/21/21 05:47 Dose: 75 mcg Documented by: Metolazone (Metolazone 2.5 Mg Tab) 2.5 mg PO MoTh@0730 [facility] Metoprolol Succinate (Metoprolol Succinate 25 Mg Tab.Er) 12.5 mg PO BEDTIME [facility] Last Admin: 01/20/21 20:00 Dose: 12.5 mg Documented by: Multivitamins/Minerals (Lutein/Minerals/Vit A,C & E Tab) 1 each PO BIDMEALS [facility] Last Admin: 01/21/21 09:25 Dose: 1 each Documented by: Nitroglycerin (Nitroglycerin 0.4 Mg Tab.Sl) 0.4 mg SL ASDIRECTED PRN PRN Reason: Chest Pain Potassium Chloride (Potassium Chloride 10 Meq Tab.Er) 40 meq PO BIDMEALS [facility] Potassium Chloride (Potassium Chloride 10 Meq Tab.Er) 40 meq PO ONETIME ONE Stop: 01/21/21 10:58 Rosuvastatin Calcium (Rosuvastatin 10 Mg Tab) 5 mg PO MoWeFr@2100 [facility] Sodium Chloride (Sodium Chloride 0.9% 10 Ml Syringe) 10 ml FLUSH ASDIRECTED PRN PRN Reason: Keep Vein Open Tamsulosin HCl (Tamsulosin 0.4 Mg Cap.Er) 0.4 mg PO DAILY [facility] Last Admin: 01/21/21 09:25 Dose: 0.4 mg Documented by: Warfarin Sodium (Pharmacy To Dose - Warfarin) 1 dose .XX ASDIRECTED [facility] Warfarin Sodium (Warfarin 5 Mg Tab) 5 mg PO ONETIME ONE Stop: 01/21/21 14:01 Discontinued Medications Allopurinol (Allopurinol 100 Mg Tab) 100 mg PO DAILY [facility] Cyanocobalamin (Cyanocobalamin (Vitamin B12) 1,000 Mcg/Ml Sdv) 1,000 mcg IM ASDIRECTED [facility] Denosumab (Denosumab 60 Mg/1 Ml Syringe) 60 mg SUBCUT ASDIRECTED [facility] Furosemide (Furosemide 40 Mg/4 Ml Vial) 40 mg IVPUSH ONETIME ONE Stop: 01/20/21 16:01 Last Admin: 01/20/21 16:02 Dose: 40 mg Documented by: Potassium Chloride 20 meq/ (Premix) 100 mls @ 50 mls/hr IV ONETIME ONE Stop: 01/20/21 15:12 Last Admin: 01/20/21 14:41 Dose: 50 mls/hr Documented by: Non-Formulary Medication (Calcium Carb/Vit D3/Minerals [Hm Calcium [id number] Tab]) 2 oz PO BIDMEALS [facility] Last Admin: 01/21/21 10:37 Dose: Not Given Documented by: Non-Formulary Medication (Glucosamine/Msm/Chondroitin A [Glucosamine Chondroit Msm Tab]) 1 tab PO BIDMEALS [facility] Last Admin: 01/21/21 10:37 Dose: Not Given Documented by: Non-Formulary Medication (Warfarin) 7.5 mg PO .LUKE@2100 [facility] Potassium Chloride (Potassium Chloride 10 Meq Tab.Er) 40 meq PO BEDTIME [facility] Potassium Chloride (Potassium Chloride 10 Meq Tab.Er) 40 meq PO ONETIME ONE Stop: 01/20/21 13:14 Last Admin: 01/20/21 14:40 Dose: 40 meq Documented by: Warfarin Sodium (Warfarin 5 Mg Tab) 5 mg PO .MONWEDFRI [facility] - Exam Quality Assessment: Supplemental Oxygen General: Alert, Oriented Lungs: Clear to Auscultation, Normal Respiratory Effort Cardiovascular: Regular Rate, Regular Rhythm GI/Abdominal Exam: Soft Back Exam: Normal Inspection Extremities: No Pedal Edema - Patient Data Lab Results Last 24 hrs: Laboratory Results - last 24 hr 01/20/21 01/21/21 01/21/21 Range/Units 15:30 06:17 06:17 WBC 5.7 (5.0-10.0) 10^3/uL RBC 3.35 L (4.6-6.2) 10^6/uL Hgb 10.4 L (14.0-18.0) g/dL Hct 31.9 L (40.0-54.0) % MCV 95.2 (80-100) fL MCH 31.0 (27.0-34.0) pg MCHC 32.6 L (33.0-35.0) g/dL Plt Count 158 (150-450) 10^3/uL Neut % (Auto) 71.9 (42.2-75.2) % Lymph % (Auto) 13.7 L (20.5-50.1) % Clinch % (Auto) 11.9 H (2-8) % Eos % (Auto) 1.6 (1.0-3.0) % Baso % (Auto) 0.9 (0.0-1.0) % PT 32.3 H D 28.6 H (9.0-12.0) SEC INR 3.3 H 2.9 H (0.9-1.2) Sodium (136-145) mmol/L Potassium (3.5-5.1) mmol/L Chloride (98-107) mmol/L Carbon Dioxide (21-32) mmol/L Anion Gap (7-13) mEq/L BUN (7-18) mg/dL Creatinine (0.70-1.30) mg/dL Est Cr Clr Drug Dosing mL/min Estimated GFR (MDRD) Glucose (74-99) mg/dL Calcium (8.5-10.1) mg/dL 01/21/21 Range/Units 06:17 WBC (5.0-10.0) 10^3/uL RBC (4.6-6.2) 10^6/uL Hgb (14.0-18.0) g/dL Hct (40.0-54.0) % MCV (80-100) fL MCH (27.0-34.0) pg MCHC (33.0-35.0) g/dL Plt Count (150-450) 10^3/uL Neut % (Auto) (42.2-75.2) % Lymph % (Auto) (20.5-50.1) % Clinch % (Auto) (2-8) % Eos % (Auto) (1.0-3.0) % Baso % (Auto) (0.0-1.0) % PT (9.0-12.0) SEC INR (0.9-1.2) Sodium 135 L (136-145) mmol/L Potassium 3.0 L (3.5-5.1) mmol/L Chloride 95 L (98-107) mmol/L Carbon Dioxide 31 (21-32) mmol/L Anion Gap 12.0 (7-13) mEq/L BUN 50 H (7-18) mg/dL Creatinine 1.95 H (0.70-1.30) mg/dL Est Cr Clr Drug Dosing 25.33 mL/min Estimated GFR (MDRD) 33 Glucose 122 H (74-99) mg/dL Calcium 8.1 L (8.5-10.1) mg/dL Result Diagrams: 01/21/21 06:17 01/21/21 06:17 Sepsis Event Note - Evaluation Sepsis Screening Result: No Definite Risk - Focused Exam Vital Signs: Vital Signs Temp Pulse Resp BP BP BP Pulse Ox 01/21/21 09:25 136/65 01/21/21 07:56 98.8 F 57 L 20 136/65 93 L 01/21/21 04:00 52 L 18 117/73 97 01/21/21 00:00 97.8 F 55 L 18 115/64 94 L - Problem List & Annotations (1) Afib, Atrial fibrillation SNOMED Code(s): 42724472 Code(s): I48.91 - UNSPECIFIED ATRIAL FIBRILLATION Status: Chronic Current Visit: No (2) CHF, Congestive heart failure SNOMED Code(s): 38105366 Code(s): I50.9 - HEART FAILURE, UNSPECIFIED Status: Acute Current Visit: No (3) Chronic anticoagulation SNOMED Code(s): 413260472 Code(s): Z79.01 - ASSISTED (CURRENT) USE OF ANTICOAGULANTS Status: Chronic Current Visit: No - Problem List Review Problem List Initiated/Reviewed/Updated: Yes - My Orders Last 24 Hours: My Active Orders 01/20/21 12:02 Height and Weight [RC] DAILY Oxygen Therapy [RC] .PRN Up With Assistance [RC] ASDIRECTED VTE/DVT Education [RC] PER UNIT ROUTINE Vital Signs [RC] 00,04,08,12,16,20 Acetaminophen [TylenoL] 650 mg PO Q4H PRN Sodium Chloride 0.9% [Saline Flush] 10 ml FLUSH ASDIRECTED PRN Saline Lock Insert [OM.PC] Routine 01/20/21 12:04 Intake and Output [RC] QSHIFT 01/20/21 12:05 Cardiac Monitoring [RC] 08,20 01/20/21 13:07 Code Status [Resuscitation Status] Routine 01/20/21 14:09 Admission Status [Patient Status] [ADT] Routine 01/20/21 15:04 Nitroglycerin [Nitrostat] 0.4 mg SL ASDIRECTED PRN 01/20/21 Dinner 2 Gram Sodium Diet [DIET] 01/20/21 18:00 Lutein/Minerals/Vit A,C & E [I-Henry] 1 each PO BIDMEALS allopurinoL [Zyloprim] 100 mg PO DAILY@1800 01/20/21 19:15 Pharmacy to Dose - Warfarin 1 dose .XX ASDIRECTED 01/20/21 21:00 Aspirin [Halfprin] 81 mg PO BEDTIME Metoprolol Succinate [Toprol XL] 12.5 mg PO BEDTIME 01/21/21 06:00 Levothyroxine 75 mcg PO ACBRK 01/21/21 08:00 Furosemide [Lasix] 20 mg IVPUSH BIDDIURETIC 01/21/21 09:00 Tamsulosin [Flomax] 0.4 mg PO DAILY amLODIPine [Norvasc] 10 mg PO DAILY 01/21/21 10:15 Calcium Carbonate/Vitamin D3 [Calcium Carbonate/Vitamin D 1250 MG-200 Unit] 1 tab PO BIDMEALS 01/21/21 10:57 Potassium Chloride [Klor-Con 10] 40 meq PO ONETIME ONE 01/21/21 14:00 Warfarin [Coumadin] 5 mg PO ONETIME ONE 01/21/21 18:00 Potassium Chloride [Klor-Con 10] 40 meq PO BIDMEALS 01/21/21 21:00 Rosuvastatin [Crestor] 5 mg PO MoWeFr@2100 01/22/21 05:11 CBC WITH AUTO DIFF [HEME] AM INR,PT,PROTHROMBIN TIME [COAG] AM 01/22/21 07:30 metOLazone [Zaroxolyn] 2.5 mg PO MoTh@0730 01/22/21 15:00 BASIC METABOLIC PANEL,BMP [CHEM] DAILY 01/23/21 15:00 BASIC METABOLIC PANEL,BMP [CHEM] DAILY 01/24/21 15:00 BASIC METABOLIC PANEL,BMP [CHEM] DAILY 01/25/21 15:00 BASIC METABOLIC PANEL,BMP [CHEM] DAILY 01/26/21 15:00 BASIC METABOLIC PANEL,BMP [CHEM] DAILY 01/27/21 15:00 BASIC METABOLIC PANEL,BMP [CHEM] DAILY - Plan Plan:: Pt is 89 y/o m with h/o A fib, CAD, AAA repair, AVR 20 years ago, CHF. Pt reported SOB for 1-2 weeks. He was treated on ER few days ago for CHF exacerbation. with IV Lasix. He symptoms improved. On the day of admission, he saw by his PCP and was found with K 2.9 and he was admitted for replacement. Pt reports that he has gain 10 Lbs over the last 2 weeks ( his dry wt is ~ 185 Lbs). He reports that he has no orthopnea but he get SOB on mild exertion. no cough or CP. 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 He live with his and son. Hypokalemia: severe: improved continue with oral replacement Acute CHF exacerbation: CXR: no pulm edema. Continue with to IV diuretics AVR: monitor INR. OK CAD: cont . home medications DNR/ DNI: as per pt request
[2021-01-21] MEDS ORDERED: Warfarin 5 MG Tab PO ONE (14:00)
[2021-01-21] MEDS: Allopurinol 100 MG Tab PO SCH (17:43)
[2021-01-21] MEDS: Potassium Chloride 10 MEQ Tab.ER PO SCH (17:44)
[2021-01-21] MEDS: Metoprolol Succinate 25 MG Tab.ER PO SCH (20:55)
[2021-01-21] MEDS: Aspirin 81 MG Tab.EC PO SCH (20:55)
[2021-01-21] MEDS ORDERED: Rosuvastatin 10 MG Tab PO SCH (21:00)
[2021-01-22] MEDS: Levothyroxine 75 MCG Tab PO SCH (05:49)
[2021-01-22 06:58] LABS: ANION GAP 11.6 mEq/L (7-13)
[2021-01-22] MEDS ORDERED: METOLAZONE 5 MG PO SCH (07:30)
[2021-01-22 08:14] VITALS: BP 149/54; PULSE 50
[2021-01-22] MEDS: Potassium Chloride 10 MEQ Tab.ER PO SCH (08:52)
[2021-01-22] MEDS: Lutein/Minerals/Vit A,C & E Tab PO SCH (08:52)
[2021-01-22] MEDS: Calcium Carbonate/Vitamin D3 1250 MG-200 Unit Tab PO SCH (08:52)
[2021-01-22] MEDS: amLODIPine 5 MG Tab PO SCH (08:54)
[2021-01-22] MEDS: Tamsulosin 0.4 MG Cap.ER PO SCH (08:54)
[2021-01-22] MEDS: Furosemide 20 MG/2 ML VIAL IVPUSH SCH (08:54)
--- NOTE | 2021-01-22 10:26 | PCM.DCSUM1 ---
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 Pt reported SOB for 1-2 weeks. He was treated on ER for CHF exacerbation with IV Lasix few days before admission .. He symptoms improved at that time. On the day of admission, he saw by his PCP and was found with K 2.9 and he was admitted for replacement. Pt reports that he has gain 10 Lbs over the last 2 weeks ( his dry wt is ~ 185 Lbs). He reports that he has no orthopnea but he get SOB on mild exertion. no cough or CP. 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 He live with his and son. during his stay he was treated for : Hypokalemia: severe: improved continue with oral replacement with KDUR 40 meq BID for one week. He needs to see his doctor next week for reevaluation. Acute CHF exacerbation: CXR: no pulm edema. Increase lasid from 40 mg daily to BID for one week. He needs to see his doctor next week for reevaluation. AVR: monitor INR. OK. to follow up with PCP next week CAD: cont . home medications DNR/ DNI: as per pt request - Discharge Data Discharge Date: 01/22/21 Discharge Disposition: Home, Self-Care 01 Condition: Good - Referral to Home Health Date of Face to Face Encounter: 01/22/21 Primary Care Physician: Maryse Rivera NP - Discharge Diagnosis/Problem(s) (1) Afib, Atrial fibrillation SNOMED Code(s): 52316170 ICD Code: I48.91 - UNSPECIFIED ATRIAL FIBRILLATION Status: Chronic Current Visit: No (2) CHF, Congestive heart failure SNOMED Code(s): 41430311 ICD Code: I50.9 - HEART FAILURE, UNSPECIFIED Status: Acute Current Visit: No (3) Chronic anticoagulation SNOMED Code(s): 514628656 ICD Code: Z79.01 - USP (CURRENT) USE OF ANTICOAGULANTS Status: Chronic Current Visit: No - Discharge Plan *PRESCRIPTION DRUG MONITORING PROGRAM REVIEWED*: Not Applicable *COPY OF PRESCRIPTION DRUG MONITORING REPORT IN PATIENT SILVIA: Not Applicable Prescriptions/Med Rec: Furosemide 40 mg PO BID 7 Days #14 Potassium Chloride [Klor-Con 10] 40 meq PO BIDMEALS 7 Days #14 tab.er metOLazone [Metolazone] 2.5 mg PO .MO. 14 Days #4 tablet Home Medications: Home Meds Levothyroxine [Synthroid] 75 mcg PO ACBRK 04/24/14 [History] Metoprolol Succinate [Toprol XL] 12.5 mg PO BEDTIME 04/24/14 [History] Nitroglycerin [Nitrostat] 0.4 mg SL ASDIRECTED PRN 04/24/14 [History] Warfarin [Coumadin] 7.5 mg PO .GUICHON@209904/24/14 [History] Allopurinol [Zyloprim] 100 mg PO DAILY 01/16/21 [History] Calcium Carb/Vit D3/Minerals [Hm Calcium 087-W1-Bzjzzcdm Tab] 2 oz PO BIDMEALS 01/16/21 [History] Cyanocobalamin (Vitamin B-12) [Cyanocobalamin Injection] 1,000 mcg IM ASDIRECTED 01/16/21 [History] Denosumab [Prolia] 60 mg SUBCUT ASDIRECTED 01/16/21 [History] Glucosamine/Msm/Chondroitin A [Glucosamine Chondroit MSM Tab] 1 tab PO BIDMEALS 01/16/21 [History] Rosuvastatin [Crestor] 5 mg PO .MONWEDFRID@209901/16/21 [History] Tamsulosin [Flomax] 0.4 mg PO DAILY 01/16/21 [History] Warfarin [Coumadin] 5 mg PO .MONWEDFRI 01/16/21 [History] amLODIPine Besylate [Amlodipine Besylate] 10 mg PO DAILY 01/16/21 [History] Aspirin [Aspirin EC] 81 mg PO BEDTIME 01/20/21 [History] Vit A/Vit C/Vit E/Zinc/Copper [Eye Multivitamin Tablet] 1 tab PO BIDMEALS 01/20/21 [History] Calcium Carbonate/Vitamin D3 [Calcium Carbonate/Vitamin D 1250 MG-200 Unit] 1 tab PO BIDMEALS tablet 01/22/21 [Rx] Furosemide 40 mg PO BID 7 Days #14 01/22/21 [Rx] Potassium Chloride [Klor-Con 10] 40 meq PO BIDMEALS 7 Days #14 tab.er 04/01/21 [Rx] metOLazone [Metolazone] 2.5 mg PO .MO.TH 14 Days #4 tablet 01/22/21 [Rx] Oxygen Therapy Mode: Room Air Patient Handouts: Heart Failure, Self Care, Heart Failure, Self Care, [id number], Heart Failure, Diagnosis, [id number]-jt-[id number], Living With Heart Failure, Heart Failure Exacerbation, Atrial Fibrillation, [id number] - Discharge Summary/Plan Comment DC Time >30 min.: Yes (exam, planning and DC summary) - General Info Functional Status: Reports: Tolerating Diet - Review of Systems General: Denies: Fever Pulmonary: Denies: Shortness of Breath Cardiovascular: Denies: Chest Pain Gastrointestinal: Denies: Abdominal Pain Neurological: Denies: Confusion Psychiatric: Denies: Confusion - Patient Data Vitals - Most Recent: Last Vital Signs Temp 98.0 F 01/22/21 08:00 Pulse 50 L 01/22/21 08:00 Resp 18 01/22/21 08:00 BP 149/54 H 01/22/21 08:54 Pulse Ox 95 01/22/21 08:00 Weight - Most Recent: 174 lb 6.4 oz I&O - Last 24 hours: Intake & Output 01/21/21 01/22/21 01/22/21 22:59 06:59 14:59 Intake Total 320 Output Total 1500 Balance -1180 Lab Results - Last 24 hrs: Laboratory Results - last 24 hr 01/22/21 01/22/21 01/22/21 Range/Units 06:16 06:16 06:16 WBC 6.5 (5.0-10.0) 10^3/uL RBC 3.35 L (4.6-6.2) 10^6/uL Hgb 10.3 L (14.0-18.0) g/dL Hct 32.2 L (40.0-54.0) % MCV 96.1 (80-100) fL MCH 30.7 (27.0-34.0) pg MCHC 32.0 L (33.0-35.0) g/dL Plt Count 177 (150-450) 10^3/uL Neut % (Auto) 70.0 (42.2-75.2) % Lymph % (Auto) 14.9 L (20.5-50.1) % [place] % (Auto) 12.3 H (2-8) % Eos % (Auto) 2.0 (1.0-3.0) % Baso % (Auto) 0.8 (0.0-1.0) % PT 23.0 H (9.0-12.0) SEC INR 2.3 H (0.9-1.2) Sodium 134 L (136-145) mmol/L Potassium 3.6 (3.5-5.1) mmol/L Chloride 96 L (98-107) mmol/L Carbon Dioxide 30 (21-32) mmol/L Anion Gap 11.6 (7-13) mEq/L BUN 44 H (7-18) mg/dL Creatinine 1.86 H (0.70-1.30) mg/dL Est Cr Clr Drug Dosing 26.56 mL/min Estimated GFR (MDRD) 34 Glucose 124 H (74-99) mg/dL Calcium 8.5 (8.5-10.1) mg/dL Med Orders - Current: Current Medications Acetaminophen (Acetaminophen 325 Mg Tab) 650 mg PO Q4H PRN PRN Reason: Pain (Mild 1-3)/fever Last Admin: 01/22/21 00:00 Dose: 650 mg Documented by: Allopurinol (Allopurinol 100 Mg Tab) 100 mg PO DAILY@1800 [facility] Last Admin: 01/21/21 17:43 Dose: 100 mg Documented by: Amlodipine Besylate (Amlodipine 5 Mg Tab) 10 mg PO DAILY [facility] Last Admin: 01/22/21 08:54 Dose: 10 mg Documented by: Aspirin (Aspirin 81 Mg Tab.Ec) 81 mg PO BEDTIME [facility] Last Admin: 01/21/21 20:55 Dose: 81 mg Documented by: Calcium Carbonate (Calcium Carbonate/Vitamin D3 1250 Mg-200 Unit Tab) 1 tab PO BIDMEALS [facility] Last Admin: 01/22/21 08:52 Dose: 1 tab Documented by: Furosemide (Furosemide 20 Mg/2 Ml Vial) 20 mg IVPUSH BIDDIURETIC [facility] Last Admin: 01/22/21 08:54 Dose: 20 mg Documented by: Levothyroxine Sodium (Levothyroxine 75 Mcg Tab) 75 mcg PO ACBRK [facility] Last Admin: 01/22/21 05:49 Dose: 75 mcg Documented by: Metoprolol Succinate (Metoprolol Succinate 25 Mg Tab.Er) 12.5 mg PO BEDTIME [facility] Last Admin: 01/21/21 20:55 Dose: 12.5 mg Documented by: Multivitamins/Minerals (Lutein/Minerals/Vit A,C & E Tab) 1 each PO BIDMEALS [facility] Last Admin: 01/22/21 08:52 Dose: 1 each Documented by: Nitroglycerin (Nitroglycerin 0.4 Mg Tab.Sl) 0.4 mg SL ASDIRECTED PRN PRN Reason: Chest Pain Metolazone 5 Mg Tab (Pt Own Med) 0 each PO MoTh@0730 [facility] Last Admin: 01/22/21 08:08 Dose: 1 each Documented by: Potassium Chloride (Potassium Chloride 10 Meq Tab.Er) 40 meq PO BIDMEALS [facility] Last Admin: 01/22/21 08:52 Dose: 40 meq Documented by: Rosuvastatin Calcium (Rosuvastatin 10 Mg Tab) 5 mg PO MoWeFr@2100 [facility] Last Admin: 01/21/21 20:53 Dose: 5 mg Documented by: Sodium Chloride (Sodium Chloride 0.9% 10 Ml Syringe) 10 ml FLUSH ASDIRECTED PRN PRN Reason: Keep Vein Open Tamsulosin HCl (Tamsulosin 0.4 Mg Cap.Er) 0.4 mg PO DAILY [facility] Last Admin: 01/22/21 08:54 Dose: 0.4 mg Documented by: Warfarin Sodium (Pharmacy To Dose - Warfarin) 1 dose .XX ASDIRECTED [facility] Warfarin Sodium (Warfarin 2.5 Mg Tab) 7.5 mg PO ONETIME ONE Stop: 01/22/21 14:01 Discontinued Medications Allopurinol (Allopurinol 100 Mg Tab) 100 mg PO DAILY [facility] Cyanocobalamin (Cyanocobalamin (Vitamin B12) 1,000 Mcg/Ml Sdv) 1,000 mcg IM ASDIRECTED [facility] Denosumab (Denosumab 60 Mg/1 Ml Syringe) 60 mg SUBCUT ASDIRECTED [facility] Furosemide (Furosemide 40 Mg/4 Ml Vial) 40 mg IVPUSH ONETIME ONE Stop: 01/20/21 16:01 Last Admin: 01/20/21 16:02 Dose: 40 mg Documented by: Potassium Chloride 20 meq/ (Premix) 100 mls @ 50 mls/hr IV ONETIME ONE Stop: 01/20/21 15:12 Last Admin: 01/20/21 14:41 Dose: 50 mls/hr Documented by: Non-Formulary Medication (Calcium Carb/Vit D3/Minerals [Hm Calcium 624-C1-[id number] Tab]) 2 oz PO BIDMEALS [facility] Last Admin: 01/21/21 10:37 Dose: Not Given Documented by: Non-Formulary Medication (Glucosamine/Msm/Chondroitin A [Glucosamine Chondroit Msm Tab]) 1 tab PO BIDMEALS [facility] Last Admin: 01/21/21 10:37 Dose: Not Given Documented by: Non-Formulary Medication (Warfarin) 7.5 mg PO .LUKE@2100 [facility] Potassium Chloride (Potassium Chloride 10 Meq Tab.Er) 40 meq PO BEDTIME [facility] Potassium Chloride (Potassium Chloride 10 Meq Tab.Er) 40 meq PO ONETIME ONE Stop: 01/20/21 13:14 Last Admin: 01/20/21 14:40 Dose: 40 meq Documented by: Potassium Chloride (Potassium Chloride 10 Meq Tab.Er) 40 meq PO ONETIME ONE Stop: 01/21/21 10:58 Last Admin: 01/21/21 11:57 Dose: 40 meq Documented by: Warfarin Sodium (Warfarin 5 Mg Tab) 5 mg PO .LATA [facility] Warfarin Sodium (Warfarin 5 Mg Tab) 5 mg PO ONETIME ONE Stop: 01/21/21 14:01 Last Admin: 01/21/21 13:28 Dose: 5 mg Documented by: - Exam Quality Assessment: Denies: Supplemental Oxygen General: Reports: Oriented, Cooperative, No Acute Distress Lungs: Reports: Clear to Auscultation Cardiovascular: Reports: Regular Rate, Regular Rhythm GI/Abdominal Exam: Soft Back Exam: Reports: Normal Inspection Extremities: No Pedal Edema Skin: Reports: Intact Neurological: Reports: No New Focal Deficit Psy/Mental Status: Reports: Normal Mood
[2021-01-22] MEDS ORDERED: Warfarin 2.5 MG Tab PO ONE (14:00)
== END 2021-01-22 11:10 | disposition home or self-care (01) ==
LOC: DL.MS 11:21
PROVIDERS: ADMIT Internal Medicine; ATTEND Internal Medicine
DX: E87.6 Hypokalemia (principal); I48.91 Unspecified atrial fibrillation; I11.0 Hypertensive heart disease with heart failure; I50.9 Heart failure, unspecified; I25.10 Atherosclerotic heart disease of native coronary artery without angina pectoris; E78.00 Pure hypercholesterolemia, unspecified; E03.9 Hypothyroidism, unspecified; E66.9 Obesity, unspecified; Z68.26 Body mass index [BMI] 26.0-26.9, adult; Z91.038 Other insect allergy status; Z79.01 Long term (current) use of anticoagulants; Z79.890 Hormone replacement therapy; Z79.82 Long term (current) use of aspirin; Z79.899 Other long term (current) drug therapy; Z85.46 Personal history of malignant neoplasm of prostate; Z87.891 Personal history of nicotine dependence; Z98.890 Other specified postprocedural states
CPT/HCPCS: 36415; 71046; 80048; 85025; 85610; 96365; 96366; 96375; 96376; A9270; G0378; G0379; J1940; J3480